=== PATIENT | female | born 1935 | race Caucasian/White ===

== ENCOUNTER → 2017-10-29 | Outpatient (CLI) | payer MEDICARE | LOC: M WUC 19:15 | DX: S82.851A Displaced trimalleolar fracture of right lower leg, initial encounter for closed fracture (principal); M19.071 Primary osteoarthritis, right ankle and foot; X58.XXXA Exposure to other specified factors, initial encounter; Y92.89 Other specified places as the place of occurrence of the external cause; Y93.89 Activity, other specified; Y99.8 Other external cause status | CPT/HCPCS: 73610 ==

== ENCOUNTER 2017-10-30 15:59 | Inpatient (IN) | payer MEDICARE ==
[2017-10-30] MEDS ORDERED: GLUCOSE 4 GM CHEW TABLET PO (17:30)
[2017-10-30] MEDS ORDERED: GLUCAGON FOR INJ 1 MG VIAL (J1610) SC (17:30)
[2017-10-30] MEDS ORDERED: DEXTROSE 50% 50 ML SYRINGE IV (17:30)
[2017-10-30] MEDS ORDERED: SERTRALINE HCL 25 MG TABLET PO (18:00)
[2017-10-30 18:41] LABS: BASO # 0.1 10^3/uL (0.0-0.2); BASO % 0.6 % (0.0-1.0); EOS # 0.1 10^3/uL (0.0-0.50); HEMATOCRIT 36.9 % (36.0-47.0); HEMOGLOBIN 12.2 g/dl (12.0-16.0); IMMATURE GRANULOCYTE % 0.4 % (0-3.0); LYMPH # 2.7 10^3/uL (1.5-4.5); LYMPH % 23.2 % (24.0-44.0); MEAN CORPUSCULAR HEMOGLOBIN 29.4 pg (27.0-33.0); MEAN CORPUSCULAR HGB CONC 33.1 g/dl (32.0-36.5); MEAN CORPUSCULAR VOLUME 88.9 fl (80.0-96.0); MONO # 0.9 10^3/uL (0.0-0.8); MONO % 7.4 % (0.0-5.0); NEUTROPHILS # 7.7 10^3/uL (1.8-7.7); NEUTROPHILS % 67.4 % (36.0-66.0); PLATELET COUNT, AUTOMATED 305 10^3/uL (150-450); RED BLOOD COUNT 4.15 10^6/uL (4.00-5.40); RED CELL DISTRIBUTION WIDTH 13.7 % (11.5-14.5); WHITE BLOOD COUNT 11.4 10^3/uL (4.0-10.0)
[2017-10-30 18:52] LABS: INR 1.04; PROTHROMBIN TIME 13.7 SECONDS (12.4-14.5)
[2017-10-30 18:53] LABS: PARTIAL THROMBOPLASTIN TIME 32.3 SECONDS (26.8-37.9)
[2017-10-30] MEDS: amLODIPine 5 MG TAB PO ×2 (18:53→21:30)
[2017-10-30 19:04] LABS: ANION GAP 8 MEQ/L (8-16); BLOOD UREA NITROGEN 14 MG/DL (7-18); CALCIUM LEVEL 8.2 MG/DL (8.8-10.2); CARBON DIOXIDE LEVEL 25 MEQ/L (21-32); CHLORIDE LEVEL 112 MEQ/L (98-107); CPK CREATINE PHOSPHOKINASE 38 U/L (26-192); CREATININE FOR GFR 1.07 MG/DL (0.55-1.30); GLOMERULAR FILTRATION RATE 52.7 (>39); GLUCOSE, FASTING 95 MG/DL (70-100); MB/CK RELATIVE INDEX 2.63 (< OR =4); POTASSIUM SERUM 4.4 MEQ/L (3.5-5.1); SODIUM LEVEL 145 MEQ/L (136-145); TROPONIN I < 0.02 NG/ML (< 0.10)
[2017-10-30 19:10] LABS: THYROID STIMULATING HORMONE 0.817 uIU/ML (0.358-3.740)
[2017-10-30] MEDS: VITAMIN D 1,000 INTERNATIONAL UNITS TABLET PO (20:24)
[2017-10-30] MEDS: LATANOPROST 0.005% OPHTH SOLN 2.5 ML OU (20:24)
[2017-10-30] MEDS: OMEGA-3 1050MG CAPSULE PO (20:24)
[2017-10-30] MEDS: LISINOPRIL *2.5 MG* TAB PO (21:30)
[2017-10-31 00:56] LABS: CPK CREATINE PHOSPHOKINASE 39 U/L (26-192); MB/CK RELATIVE INDEX 2.56 (< OR =4); TROPONIN I < 0.02 NG/ML (< 0.10)
[2017-10-31] MEDS: D5W/0.45% SODIUM CHLORIDE 1,000 ML IV ×2 (04:05→17:12)
[2017-10-31] MEDS: LEVOTHYROXINE 75MCG TABLET (0.075MG) PO (06:28)
[2017-10-31] MEDS ORDERED: CLINDAMYCIN 600 MG in APPROPRIATE DILUENT 1 EA IV (06:45)
[2017-10-31 07:04] LABS: CPK CREATINE PHOSPHOKINASE 36 U/L (26-192); MB/CK RELATIVE INDEX 2.77 (< OR =4); TROPONIN I < 0.02 NG/ML (< 0.10)
[2017-10-31] MEDS ORDERED: PERCOCET 5MG/325MG TAB PO (08:15)
[2017-10-31] MEDS ORDERED: amLODIPine 10 MG TAB PO (09:00)
[2017-10-31] MEDS: MULTIVITAMINS/MINERALS THERAP 1 TAB PO (09:00)
[2017-10-31] MEDS: OMEGA-3 1050MG CAPSULE PO ×2 (09:00→23:37)
[2017-10-31] MEDS: ESTRADIOL 1 MG TAB PO (09:00)
[2017-10-31] MEDS: VITAMIN B COMPLEX/VIT C CAP PO (09:00)
[2017-10-31] MEDS: VITAMIN D 1,000 INTERNATIONAL UNITS TABLET PO ×2 (09:00→21:00)
[2017-10-31 09:39] LABS: HEMATOCRIT 36.7 % (36.0-47.0); MEAN CORPUSCULAR HEMOGLOBIN 29.6 pg (27.0-33.0); MEAN CORPUSCULAR HGB CONC 32.7 g/dl (32.0-36.5); MEAN CORPUSCULAR VOLUME 90.6 fl (80.0-96.0); PLATELET COUNT, AUTOMATED 293 10^3/uL (150-450); RED BLOOD COUNT 4.05 10^6/uL (4.00-5.40); RED CELL DISTRIBUTION WIDTH 13.7 % (11.5-14.5); WHITE BLOOD COUNT 9.7 10^3/uL (4.0-10.0)
[2017-10-31 10:02] LABS: ANION GAP 8 MEQ/L (8-16); BLOOD UREA NITROGEN 12 MG/DL (7-18); CALCIUM LEVEL 8.3 MG/DL (8.8-10.2); CARBON DIOXIDE LEVEL 24 MEQ/L (21-32); CHLORIDE LEVEL 112 MEQ/L (98-107); CREATININE FOR GFR 1.06 MG/DL (0.55-1.30); GLOMERULAR FILTRATION RATE 53.2 (>39); GLUCOSE, FASTING 103 MG/DL (70-100); SODIUM LEVEL 144 MEQ/L (136-145)
[2017-10-31] MEDS: LISINOPRIL *2.5 MG* TAB PO ×2 (10:42→23:47)
[2017-10-31] MEDS: amLODIPine 5 MG TAB PO (10:42)
[2017-10-31] MEDS: SERTRALINE HCL 25 MG TABLET PO (10:42)
[2017-10-31] MEDS ORDERED: LIDOCAINE W/EPINEPHRINE 1% 20ML VIAL As Ordered (15:15)
[2017-10-31] MEDS ORDERED: ceFAZolin 1GM INJ (J0690 PER 500MG) As Ordered (15:15)
[2017-10-31] MEDS ORDERED: BUPIVACAINE HCL 0.25% 10 ML VIAL As Ordered (15:15)
[2017-10-31] MEDS ORDERED: CLINDAMYCIN INJ 900MG/6ML VIAL As Ordered (15:21)
[2017-10-31] MEDS ORDERED: CLINDAMYCIN 600 MG/50 ML PREMIX BAG As Ordered (20:32)
[2017-10-31] MEDS ORDERED: LIDOCAINE 2% INJ 100 MG/5 ML SDV (FOR ANES.) As Ordered (20:35)
[2017-10-31] MEDS ORDERED: ROCURONIUM BROMIDE 50 MG/5 ML VIAL As Ordered (20:35)
[2017-10-31] MEDS ORDERED: PROPOFOL 200 MG/20 ML VIAL As Ordered (20:35)
[2017-10-31] MEDS ORDERED: MIDAZOLAM INJ 2 MG/2 ML VIAL (J2250) As Ordered (20:36)
[2017-10-31] MEDS ORDERED: fentaNYL 100 MCG/2 ML INJECTION (J3010) As Ordered ×2 (20:36→22:35)
[2017-10-31] MEDS ORDERED: ePHEDrine SULFATE 25 MG/5 ML(5MG/ML) SYRINGE As Ordered ×2 (20:55→21:51)
[2017-10-31] MEDS: CLINDAMYCIN 600 MG in APPROPRIATE DILUENT 1 EA IV (21:00)
[2017-10-31] MEDS ORDERED: GLYCOPYRROLATE INJ 0.2 MG/ML 2 ML VIAL As Ordered (21:34)
[2017-10-31] MEDS ORDERED: NEOSTIGMINE 10 MG/10 ML VIAL (J2710) As Ordered (21:34)
[2017-10-31] MEDS ORDERED: ONDANSETRON 4MG/2ML VIAL (J2405) As Ordered ×2 (21:34→23:13)
[2017-10-31] MEDS: LR 1,000 ML IV ×2 (23:00→23:15)
[2017-10-31] MEDS ORDERED: PERCOCET 5MG/325MG TAB As Ordered (23:00)
[2017-10-31] MEDS: PERCOCET 5MG/325MG TAB PO (23:03)
[2017-10-31] MEDS: ONDANSETRON 4MG/2ML VIAL (J2405) IV (23:10)
[2017-10-31] MEDS ORDERED: METOCLOPRAMIDE INJ 10MG/2ML VIAL (J2765) IV (23:15)
[2017-10-31] MEDS ORDERED: fentaNYL 100 MCG/2 ML INJECTION (J3010) IV (23:15)
[2017-10-31] MEDS: LATANOPROST 0.005% OPHTH SOLN 2.5 ML OU (23:39)
[2017-11-01] MEDS: MORPHINE 4 MG/ML 1ML VIAL (J2270) IV (02:11)
[2017-11-01] MEDS: PERCOCET 5MG/325MG TAB PO ×3 (04:06→13:53)
[2017-11-01] MEDS: LEVOTHYROXINE 75MCG TABLET (0.075MG) PO (06:33)
[2017-11-01] MEDS: VITAMIN D 1,000 INTERNATIONAL UNITS TABLET PO ×2 (08:39→21:52)
[2017-11-01] MEDS: MULTIVITAMINS/MINERALS THERAP 1 TAB PO (08:39)
[2017-11-01] MEDS: amLODIPine 5 MG TAB PO ×2 (08:39→08:45)
[2017-11-01] MEDS: SERTRALINE HCL 25 MG TABLET PO (08:39)
[2017-11-01] MEDS: ESTRADIOL 1 MG TAB PO (08:39)
[2017-11-01] MEDS: OMEGA-3 1050MG CAPSULE PO ×2 (08:39→21:52)
[2017-11-01] MEDS: VITAMIN B COMPLEX/VIT C CAP PO (08:39)
[2017-11-01] MEDS: LISINOPRIL *2.5 MG* TAB PO (08:44)
[2017-11-01] MEDS ORDERED: SODIUM CHLORIDE 0.9% 1000 ML IV (12:15)
[2017-11-01] MEDS: NS 500 ML IV (12:21)
[2017-11-01 12:40] LABS: BASO % 0.2 % (0.0-1.0); EOS % 0.1 % (0.0-3.0); HEMATOCRIT 20.3 % (36.0-47.0); IMMATURE GRANULOCYTE % 0.6 % (0-3.0); LYMPH # 0.7 10^3/uL (1.5-4.5); LYMPH % 8.5 % (24.0-44.0); MEAN CORPUSCULAR HEMOGLOBIN 29.8 pg (27.0-33.0); MEAN CORPUSCULAR HGB CONC 31.5 g/dl (32.0-36.5); MEAN CORPUSCULAR VOLUME 94.4 fl (80.0-96.0); MONO # 0.6 10^3/uL (0.0-0.8); MONO % 6.9 % (0.0-5.0); NEUTROPHILS # 7.2 10^3/uL (1.8-7.7); NEUTROPHILS % 83.7 % (36.0-66.0); PLATELET COUNT, AUTOMATED 151 10^3/uL (150-450); RED BLOOD COUNT 2.15 10^6/uL (4.00-5.40); RED CELL DISTRIBUTION WIDTH 13.5 % (11.5-14.5); WHITE BLOOD COUNT 8.6 10^3/uL (4.0-10.0)
[2017-11-01 12:45] LABS: HEMOGLOBIN 6.4 g/dl (12.0-16.0)
[2017-11-01 13:25] LABS: BASO % 0.3 % (0.0-1.0); EOS % 0.1 % (0.0-3.0); HEMATOCRIT 33.7 % (36.0-47.0); IMMATURE GRANULOCYTE % 0.6 % (0-3.0); LYMPH # 1.3 10^3/uL (1.5-4.5); LYMPH % 8.6 % (24.0-44.0); MEAN CORPUSCULAR HEMOGLOBIN 30.1 pg (27.0-33.0); MEAN CORPUSCULAR HGB CONC 32.9 g/dl (32.0-36.5); MEAN CORPUSCULAR VOLUME 91.3 fl (80.0-96.0); MONO % 6.4 % (0.0-5.0); NEUTROPHILS # 12.7 10^3/uL (1.8-7.7); RED BLOOD COUNT 3.69 10^6/uL (4.00-5.40); RED CELL DISTRIBUTION WIDTH 13.5 % (11.5-14.5); WHITE BLOOD COUNT 15.2 10^3/uL (4.0-10.0)
[2017-11-01 13:31] LABS: HEMOGLOBIN 11.1 g/dl (12.0-16.0); PLATELET COUNT, AUTOMATED 260 10^3/uL (150-450)
[2017-11-01] MEDS: NS 1,000 ML IV (13:36)
[2017-11-01 13:38] LABS: ANION GAP 7 MEQ/L (8-16); BLOOD UREA NITROGEN 10 MG/DL (7-18); CALCIUM LEVEL 7.7 MG/DL (8.8-10.2); CARBON DIOXIDE LEVEL 23 MEQ/L (21-32); CHLORIDE LEVEL 106 MEQ/L (98-107); GLUCOSE, FASTING 138 MG/DL (70-100); POTASSIUM SERUM 3.9 MEQ/L (3.5-5.1); SODIUM LEVEL 136 MEQ/L (136-145)
[2017-11-01 13:40] LABS: CREATININE FOR GFR 0.99 MG/DL (0.55-1.30); GLOMERULAR FILTRATION RATE 57.6 (>39)
[2017-11-01] MEDS: ONDANSETRON 4MG/2ML VIAL (J2405) IV (15:33)
[2017-11-01] MEDS: ACETAMINOPHEN 500 MG TAB PO (21:52)
[2017-11-01] MEDS: traMADol 50 MG TAB PO (21:54)
[2017-11-01] MEDS: LATANOPROST 0.005% OPHTH SOLN 2.5 ML OU (21:56)
[2017-11-02] MEDS: LEVOTHYROXINE 75MCG TABLET (0.075MG) PO (05:27)
[2017-11-02] MEDS: traMADol 50 MG TAB PO (05:27)
[2017-11-02] MEDS: ACETAMINOPHEN 500 MG TAB PO (05:27)
[2017-11-02 05:35] LABS: HEMATOCRIT 32.1 % (36.0-47.0); HEMOGLOBIN 10.3 g/dl (12.0-16.0); MEAN CORPUSCULAR HEMOGLOBIN 29.5 pg (27.0-33.0); MEAN CORPUSCULAR HGB CONC 32.1 g/dl (32.0-36.5); PLATELET COUNT, AUTOMATED 242 10^3/uL (150-450); RED BLOOD COUNT 3.49 10^6/uL (4.00-5.40); RED CELL DISTRIBUTION WIDTH 13.8 % (11.5-14.5); WHITE BLOOD COUNT 10.6 10^3/uL (4.0-10.0)
[2017-11-02 05:57] LABS: ANION GAP 4 MEQ/L (8-16); BLOOD UREA NITROGEN 10 MG/DL (7-18); CARBON DIOXIDE LEVEL 26 MEQ/L (21-32); CHLORIDE LEVEL 111 MEQ/L (98-107); CREATININE FOR GFR 0.97 MG/DL (0.55-1.30); GLUCOSE, FASTING 104 MG/DL (70-100); POTASSIUM SERUM 4.2 MEQ/L (3.5-5.1); SODIUM LEVEL 141 MEQ/L (136-145)
[2017-11-02] MEDS: VITAMIN D 1,000 INTERNATIONAL UNITS TABLET PO (08:50)
[2017-11-02] MEDS: MULTIVITAMINS/MINERALS THERAP 1 TAB PO (08:50)
[2017-11-02] MEDS: SERTRALINE HCL 25 MG TABLET PO (08:50)
[2017-11-02] MEDS: VITAMIN B COMPLEX/VIT C CAP PO (08:50)
[2017-11-02] MEDS: OMEGA-3 1050MG CAPSULE PO (08:50)
[2017-11-02] MEDS: ESTRADIOL 1 MG TAB PO (08:50)
== END 2017-11-02 10:13 | disposition home or self-care (01) | DRG 494 ==
LOC: M MS5PR 10-31 23:25
PROC: 0QSJ04Z Reposition Right Fibula with Internal Fixation Device, Open Approach (ICD-10-PCS; principal; 2017-10-31 15:00)
DX: S82.841A Displaced bimalleolar fracture of right lower leg, initial encounter for closed fracture (principal); Z88.0 Allergy status to penicillin; Z88.8 Allergy status to other drugs, medicaments and biological substances; H40.9 Unspecified glaucoma; E03.9 Hypothyroidism, unspecified; W00.0XXA Fall on same level due to ice and snow, initial encounter; Y92.009 Unspecified place in unspecified non-institutional (private) residence as the place of occurrence of the external cause; Z79.82 Long term (current) use of aspirin; Z79.899 Other long term (current) drug therapy; I10 Essential (primary) hypertension; E86.0 Dehydration; I95.9 Hypotension, unspecified; F11.90 Opioid use, unspecified, uncomplicated

== ENCOUNTER → 2018-05-15 | Outpatient (REF) | payer MEDICARE | LOC: M LAB REF 17:24 | DX: L03.113 Cellulitis of right upper limb (principal); L72.3 Sebaceous cyst | CPT/HCPCS: 87070; 87076 ==

== ENCOUNTER → 2022-03-10 | Outpatient (CLI) | payer MEDICARE ==
[~2022-03-10] MED LIST: ASPI-1 PO; CALCTAB68 PO; ESTR1TAB PO; FISH1000 PO; LATA0.0013 OU; PERC5TAB12 PO; SERT25TA85 PO; SYNT75TA PO; TRAM50TA2 PO; VITA100066 PO; VITATAB11 PO; VITMTA PO
[2022-03-10 16:22] LABS: BASO # 0.1 10^3/uL (0.0-0.2); BASO % 0.6 % (0.0-1.0); EOS # 0.1 10^3/uL (0.0-0.5); EOS % 1.3 % (0.0-3.0); HEMATOCRIT 37.7 % (36.0-47.0); HEMOGLOBIN 12.7 g/dl (12.0-15.5); LYMPH # 1.8 10^3/uL (1.5-5.0); LYMPH % 20.9 % (24.0-44.0); MEAN CORPUSCULAR HEMOGLOBIN 31.1 pg (27.0-33.0); MEAN CORPUSCULAR HGB CONC 33.7 g/dl (32.0-36.5); MEAN CORPUSCULAR VOLUME 92.2 fl (80.0-96.0); MONO # 0.6 10^3/uL (0.0-0.8); MONO % 7.3 % (2.0-8.0); NEUTROPHILS % 69.6 % (36.0-66.0); PLATELET COUNT, AUTOMATED 311 10^3/uL (150-450); RED BLOOD COUNT 4.09 10^6/uL (4.00-5.40); WHITE BLOOD COUNT 8.7 10^3/uL (4.0-10.0)
[2022-03-10 16:49] LABS: ALBUMIN 3.6 GM/DL (3.2-5.2); BILIRUBIN,TOTAL 0.8 MG/DL (0.2-1.0); CALCIUM LEVEL 8.8 MG/DL (8.8-10.2); CREATININE FOR GFR 1.55 MG/DL (0.55-1.30); GLOMERULAR FILTRATION RATE 33.9 (>32); POTASSIUM SERUM 4.2 MEQ/L (3.5-5.1); TOTAL PROTEIN 7.5 GM/DL (6.4-8.2)
== END ==
LOC: M LAB 16:04
PROVIDERS: ATTEND Physician Assistant
DX: R19.7 Diarrhea, unspecified (principal)

== ENCOUNTER → 2022-12-10 | Outpatient (REF) | payer MEDICARE ==
[2022-12-11 14:08] LABS: PERCENT SATURATION 17.1 % (13.2-45.0)
[2022-12-11 14:12] LABS: FERRITIN 98.7 NG/ML (7.3-270.7)
== END ==
LOC: M LAB REF 12:57
PROVIDERS: ATTEND Internal Medicine
DX: N18.32 Chronic kidney disease, stage 3b (principal); D64.9 Anemia, unspecified

== ENCOUNTER → 2023-08-15 | Outpatient (REF) | payer MEDICARE | LOC: M LAB REF 10:04 | PROVIDERS: ATTEND Internal Medicine | DX: J30.0 Vasomotor rhinitis (principal); I50.30 Unspecified diastolic (congestive) heart failure ==

== ENCOUNTER → 2023-08-26 | Outpatient (REF) | payer MEDICARE | LOC: M LAB REF 16:42 | PROVIDERS: ATTEND Internal Medicine | DX: M15.9 Polyosteoarthritis, unspecified (principal) ==